=== PATIENT | male | born 1960 | race Caucasian/White ===

== ENCOUNTER → 2016-10-12 | Outpatient (CLI) | payer BC ==
[2016-10-12 17:39] LABS: ALBUMIN 4.4 g/dL (3.4-5.0); CALCULATED IONIZED CALCIUM 3.8 mg/dL (3.8-4.6); TOTAL PROTEIN 7.4 g/dL (6.4-8.5)
[2016-10-12 17:59] LABS: MEAN CORPUSCULAR HGB CONC 34.6 g/dL (31.0-37.0); MEAN PLATELET VOLUME 9.4 FL (6.0-9.5); PLATELET COUNT 229 10^3uL (150-450)
[2016-10-12 18:07] LABS: MEAN CORPUSCULAR HEMOGLOBIN 33.7 PG (26.0-34.0); MEAN CORPUSCULAR VOLUME 98 FL (80-100)
[2016-10-12 18:12] LABS: BAND NEUTROPHILS % 1 % (0-6); EOSINOPHILS % 1 % (0-4); LYMPHOCYTES # 30.2 #; MONOCYTES # 1.8 #; MONOCYTES % 5 % (3-11); SEGMENTED NEUTROPHILS % 10 % (51-67); TOTAL CELLS COUNTED 100; WHITE BLOOD COUNT 36.46 10^3uL (4.0-11.0)
[2016-10-12 18:13] LABS: RBC MORPH NORMAL (NORMAL)
== END ==
LOC: LAB 17:15
PROVIDERS: ATTEND Internal Medicine Hematology & Oncology
DX: C91.10 Chronic lymphocytic leukemia of B-cell type not having achieved remission (principal)
CPT/HCPCS: 36415; 80053; 85025